=== PATIENT | female | born 1995 | race Caucasian/White ===

== ENCOUNTER → 2020-06-30 11:17 | Outpatient (CLI) | payer OTHER, SELFPAY ==
[2020-07-01 01:31] LABS: COVID19 Sendout Not Detected (Not Detect)
== END ==
PROVIDERS: PCP Obstetrics & Gynecology; Visit Provider Physician Assistant
DX: Z11.59 Encounter for screening for other viral diseases (principal)
CPT/HCPCS: 87635

== ENCOUNTER 2020-07-03 08:31 | Day surgery (SDC) | payer OTHER, SELFPAY ==
[2020-07-01 07:28] VITALS: BMI 19.4
[2020-07-03] VITALS (8 sets, daily range): BP systolic 102–109; BP diastolic 58–79; PULSE 58–98; RESP 12–17; TEMP 36–37; O2SAT 98–100; BMI 19.4
--- NOTE | 2020-07-03 | PATH_ITS ---
[facility] Accession Number: [id number] . 01 Material submitted: . fallopian tube - BILATERAL FALLOPIAN TUBES . 02 Diagnosis: Bilateral Fallopian Tubes, Bilateral Tubal Ligation: Complete cross-sections of segments of fallopian tube x2. Negative for atypia or malignancy. MRV 07/07/2020 1008 Local . 02 Electronically signed: . Moraima Feliz MD, Pathologist NPI- [id number] . 01 Gross description: . Received in formalin, labeled bilateral fallopian tubes, and consists of two fallopian tubes measuring 5.0 cm in length x 0.6 cm in diameter and 6.5 cm in length x 0.6 cm in diameter. The serosa is pink-purple and smooth, and the longer fallopian tube has a 1.2 x 0.7 x 0.6 cm translucent paratubal cyst. Sectioning reveals a potts mucosa and a stellate lumen measuring up to 0.4 cm in diameter. [employer] Cell Assembly Supervisor sections are submitted. . A1: shorter fallopian tube with margin (en face, blue), central cross-sections and bisected fimbria. A2: longer fallopian tube with margin (en face, blue), central cross-sections and bisected fimbria with attached paratubal cyst. ([id number]) /MRV 07/04/2020 1257 Local . 02 Pathologist provided ICD-10: Z30.2 . 02 CPT . 274507 Performed at: 01 [facility] [address] [id number] MD Art Galvan MD Phone: [phone] Performed at: 02 [facility] [address] [place], [place] [id number] MD Lashanda Morocho MD Phone: [phone]
[2020-07-03] MEDS: LACTATED RINGERS 1,000 ML 42 ML IV (09:15)
--- NOTE | 2020-07-03 09:34 | PM.PREOP ---
Pre-operative Note COVID-19 COVID-19 status: Negative Result date/Date tested (Pos, Neg/Pending): 06/30/20 Interval Note History & Physical reviewed/Exam performed by Physician: Yes Changes to H&P: No H&P completed within 30 days and has changed as indicated here:: 07/03/20
--- NOTE | 2020-07-03 09:51 | P.HP_ITS ---
History of Present Illness History of Present Illness Date Patient Seen: 07/03/20 Time Patient Seen: 09:51 Chief complaint: [facility] Narrative: Patient is a 25-year-old 3 para 3 who desires permanent sterilization. She is scheduled for a laparoscopic bilateral salpingectomy. Patient History Medical History (Updated 07/01/20 @ 07:32 by Sondra Webber RN) (spontaneous vaginal delivery) (Acute) Surgical History (Updated 07/02/20 @ 21:50 by Lizzy Scott) Anesthesia (Resolved) H/O adenoidectomy (Acute ~1996) H/O rhinoplasty (Acute ~2007) [place] teeth extracted (Acute ~2009) Family & Social History Family History (Updated 07/02/20 @ 21:52 by Lizzy Scott) Father Hypertension Hyperlipidemia Mother Fibromyalgia EDS (Ava-Danlos syndrome) Grandfather Stroke Grandfather History of heart disease Social History: household members spouse,children Tobacco & Substance use: Smoking Status Never smoker alcohol intake frequency holiday/special occasion Substance Use Type does not use Meds Home Medications and Allergies Home Medications Medication Instructions Recorded Confirmed Type No Known Home Medications 05/22/20 07/01/20 History Allergies Allergy/AdvReac Type Severity Reaction Status Date / Time ku pepper Allergy Severe Difficulty Uncoded 07/03/20 08:42 Breathing eggs Allergy Severe Difficulty Uncoded 07/03/20 08:42 Breathing red onion Allergy Severe Difficulty Uncoded 07/03/20 08:42 Breathing Exam Vital Signs (past 8 hours): - 07/03/20 08:49 Temperature 98.6 F Pulse Rate 98 H Respiratory Rate 16 Blood Pressure 109/79 Pulse Oximetry 100 Oxygen Delivery Method Room Air Narrative Exam Narrative: HEENT: No thyromegaly, no anterior cervical or supraclavicular lymphadenopathy. Lungs:Clear to auscultation bilaterally, no wheezes. Cardiovascular: Regular rate and rhythm, no murmurs, rubs, or gallops. Abdomen: No scars. No hepatosplenomegaly. No masses palpable. External genitalia: Normal Vagina: Normal Cervix: Normal Bimanual exam: 6 Week size anteverted uterus. Mobile.] Rectal: No masses. Assessment & Plan Assessment & Plan narrative: Assessment: 25-year-old 3 para 3 who desires permanent sterilization Plan: Laparoscopic bilateral salpingectomy The risks, benefits, and alternatives to the procedure were explained to the patient. The risks including bleeding, infection, injury to the bowel, bladder, or ureters. She understands these risks and agreed to proceed. A full par Q was held and consent form was signed. COVID-19 COVID-19 status: Negative Result date/Date tested (Pos, Neg/Pending): 06/30/20 Time Spent With Patient Time with patient: less than 15 minutes
--- NOTE | 2020-07-03 10:05 | SUR.OPER ---
Lithotomy on padded OR bed, head on pillow, arms secured on padded arm boards at <90 degrees abduction. Legs secured in padded yellow fins stirrups.
[2020-07-03] MEDS: BUPIVACAINE 0.5% W/ EPI (PF) 30 ML VIAL INJ (10:40)
--- NOTE | 2020-07-03 10:44 | PM.GYNOP.1 ---
Operative Date/Time/Diagnoses Date of procedure: 07/03/20 Time of procedure: 10:44 Pre-op diagnosis: Desires permanent sterilization Post-op diagnosis: same Procedure & Clinicians Procedure: Procedures Operation Date: 07/03/20 09:45 Actual Procedures Side Surgeon p Laparoscopic Salpingectomy Bilateral Bonnie Hodge MD Indications: Multiparity Desires permanent sterilization Surgeon: Bonnie Hodge Anesthesia Type: General Operative Notes Findings: Normal uterus, tubes, ovaries Normal appendix Normal liver and gallbladder Closure Type: primary Specimen(s): left tube and right tube Estimated blood loss (mL): 5 Blood products transfused: none Procedure in detail: After informed consent was obtained, the patient was taken to the operating room where she was placed in the dorsal supine position. After adequate general endotracheal anesthesia was achieved, she was placed in the dorsal lithotomy position, and prepped and draped in the usual sterile fashion. A time-out was performed. A bivalve speculum was placed into the vagina and the anterior lip of the cervix grasped with a single-tooth tenaculum. Cervical os was sequentially dilated until the Zumi uterine manipulator could pass easily into the endometrial cavity. The single-tooth tenaculum was removed from the anterior lip of the cervix. The bivalve speculum was removed from the vagina. Attention was then turned to the abdomen where 6 cc of 0.5% Marcaine with epinephrine were injected in the umbilical fold. A 5 mm incision was made. The Veress needle was placed into the peritoneal cavity, and its placement confirmed by aspiration and drop test. The abdominal cavity was insufflated with 3.5 L of CO2. The Veress needle was removed, and a 5 mm trocar was placed without difficulty. Initial inspection with the laparoscopic revealed the findings noted above. Two other incisions were made after 6 cc of 0.5% Marcaine with epinephrine were injected lateral to the midline approximately 4 cm from the umbilicus. 5 mm trocars were placed under direct visualization. The probe was used to identify the tubes and ovaries which were found to be normal. The appendix was visualized and was normal. The gallbladder and liver were normal. The right tube was grasped with an atraumatic grasper. Using the PlasmaKinetic was settings at 40 w, the mesosalpinx was cauterized and cut all the way down to the cornua of the uterus. The tube was amputated at the cornua. This was repeated on the patient's left side. Hemostasis was achieved. The tubes were removed through the 5 mm trocars. The pelvis was examined and there was no bleeding noted. The instruments were removed from the abdomen. The CO2 was allowed to escape. The trocars were removed. The incisions were repaired with 4 0 Biosyn in a subcuticular fashion. Steri-Strips, 2 x 2, and op site were placed. The Zumi uterine manipulator was removed from the uterus. Sponge, lap, and instrument counts were correct x2. The patient tolerated the procedure well, and was taken to PACU in stable condition. Complications: none Post-operative Condition: stable Disposition: PACU Plan for aftercare: Home after recovery
== END 2020-07-03 11:59 | disposition home or self-care (01) ==
PROVIDERS: PCP Obstetrics & Gynecology; Referring Provider Obstetrics & Gynecology; Visit Provider Obstetrics & Gynecology
PROC: 0UT74ZZ Resection of Bilateral Fallopian Tubes, Percutaneous Endoscopic Approach (ICD-10-PCS; CPT 58661; principal; 2020-07-03 09:45)
DX: Z30.2 Encounter for sterilization (principal); N83.8 Other noninflammatory disorders of ovary, fallopian tube and broad ligament
CPT/HCPCS: 58661; J1100; J1885; J2405; J2704; J3010

== ENCOUNTER 2023-09-16 12:07 | Emergency (ER) | payer OTHER, SELFPAY ==
[2023-09-16 12:15] VITALS: BP 137/78; PULSE 83; RESP 18; TEMP 36.4; O2SAT 100; BMI 20.5
--- NOTE | 2023-09-16 12:24 | DI.RAD.S_ITS ---
PROCEDURE: XR FOOT RT MIN 3V INDICATIONS: MTP pain, 4 d s/p trampoline injury TECHNIQUE: 3 views of the foot were acquired. COMPARISON: None. FINDINGS: Bones: No fractures or dislocations. Normal alignment on non weight-bearing view. Joint spaces are maintained. No suspicious bony lesions. Soft tissues: No tibiotalar joint effusion. Achilles tendon appears normal. IMPRESSION: No acute bony abnormality. Dictated by: Giovanna Olivo M.D. on 09/16/2023 at 12:49 Approved by: Giovanna Olivo M.D. on 09/16/2023 at 12:51
--- NOTE | 2023-09-16 12:57 | ED_ITS ---
HPI - Extremity Problem <Linda Torres PA-C - Last Filed: 09/16/23 19:44> General Chief complaint: Extremity Injury, Lower Stated complaint: Foot pain Time Seen by Provider: 09/16/23 12:19 Source: patient Mode of arrival: Ambulatory History of Present Illness HPI Narrative: 28-year-old woman presents with concern for pain at the base of her right great toe. As well as bruising. Patient states that she did a flip on the trampoline on Tuesday night 4 days ago and she thinks that she bent her toe upwards in the process. She says it was quite painful afterwards. The bruising developed in the next day. She states that she is frustrated because she has actually been having problems with this joint on and off for the past 2 years. She states she has talked to her PCP about it but has not seen a specialist. She endorses that her chronic pain is in the base of her right great toe at the joint and is almost always present if she is kneeling and bending her toe at that joint. She states that it is also sometimes painful with walking. She says that the pain comes and goes. She endorses a tingling sensation in her great toe since her injury. Since she injured her toe on the trampoline her pain has been a lot worse than her intermittent baseline pain and she says the bruising is also concerning. She denies any current or previous problems of redness swelling heat at the site of pain and denies other symptoms, or injuries. Related Data Home Medications Medication Instructions Recorded Confirmed No Known Home Medications 05/22/20 07/01/20 Previous Rx's Medication Instructions Recorded oxycodone-acetaminophen 5 mg-325 1 tab PO Q4-6H PRN pain #14 tabs 07/03/20 mg tablet (Percocet) Allergies Allergy/AdvReac Type Severity Reaction Status Date / Time ku pepper Allergy Severe Difficulty Uncoded 07/03/20 08:42 Breathing eggs Allergy Severe Difficulty Uncoded 07/03/20 08:42 Breathing red onion Allergy Severe Difficulty Uncoded 07/03/20 08:42 Breathing Review of Systems <NEGIN Solares Last Filed: 09/16/23 19:44> Review of Systems Narrative: See HPI Patient History <NEGIN Solares Last Filed: 09/16/23 19:44> Medical History (spontaneous vaginal delivery) Surgical History Anesthesia [place] teeth extracted (~2009) H/O rhinoplasty (~2007) H/O adenoidectomy (~1996) Family History Father Hypertension Hyperlipidemia Mother Fibromyalgia EDS (Ava-Danlos syndrome) Grandfather Stroke Grandfather History of heart disease Social History household members: spouse and children Smoking Status: Never smoker Smoking Status: Never smoker alcohol intake frequency: holidays/special occasions only Substance Use Type: does not use Exam <Linda Torres PA-C - Last Filed: 09/16/23 19:44> Narrative Exam Narrative: GENERAL: 28 year old patient appears stated age. Well-developed patient, in mild distress, healthy nontoxic-appearing. HEAD: Atraumatic. Normocephalic. EYES: Pupils equal round and reactive. Extraocular motions intact. No scleral icterus. No injection or drainage. ENT: Nose without bleeding, purulent drainage. Airway patent. NECK: Trachea midline. Non tender CARDIOVASCULAR: Regular rate and rhythm RESPIRATORY: No increased work of breathing or respiratory distress EXTREMITIES: Over the affected right MTP there is purplish bruising over the MTP joint without appreciable swelling. Range of motion at the great toe and ankle are intact. There is increased pain with attempted flexion and extension of the great toe. There is tenderness with palpation of the dorsum of MTP/extensor tendon and the dorsum of the proximal great toe without erythema, heat, swelling noted No other edema or joint tenderness noted. Pedal pulses are strong and equal bilaterally 2+ no other bony tenderness noted NEURO: AOx3. SKIN: No rash or erythema of visible areas Initial Vital Signs Initial Vital Signs: Vital Signs Temperature 97.5 F L 09/16/23 12:15 Pulse Rate 83 09/16/23 12:15 Respiratory Rate 18 09/16/23 12:15 Blood Pressure 137/78 09/16/23 12:15 Pulse Oximetry 100 09/16/23 12:15 Oxygen Delivery Method Room Air 09/16/23 12:15 <Rebekah Kiran MD - Last Filed: 09/18/23 02:36> Initial Vital Signs Initial Vital Signs: Vital Signs Temperature 97.5 F L 09/16/23 12:15 Pulse Rate 83 09/16/23 12:15 Respiratory Rate 18 09/16/23 12:15 Blood Pressure 137/78 09/16/23 12:15 Pulse Oximetry 100 09/16/23 12:15 Oxygen Delivery Method Room Air 09/16/23 12:15 Course <Linda Torres PA-C - Last Filed: 09/16/23 19:44> Orders Ordered: ED Orders 09/16/23 12:24 XR foot RT min 3V Stat Vital Signs Vital signs: Vital Signs - 8 hr 09/16/23 12:15 09/16/23 13:26 Temperature 97.5 F L Pulse Rate 83 77 Respiratory Rate 18 20 Blood Pressure 137/78 117/72 Pulse Oximetry 100 100 Oxygen Delivery Method Room Air Room Air <Rebekah Kiran MD - Last Filed: 09/18/23 02:36> Orders Ordered: ED Orders 09/16/23 12:24 XR foot RT min 3V Stat Vital Signs Vital signs: Vital Signs - 8 hr 09/16/23 12:15 09/16/23 13:26 Temperature 97.5 F L Pulse Rate 83 77 Respiratory Rate 18 20 Blood Pressure 137/78 117/72 Pulse Oximetry 100 100 Oxygen Delivery Method Room Air Room Air MDM - Extremity (Nontraumatic) <Linda Torres PA-C - Last Filed: 09/16/23 19:44> Differential Diagnosis Differential diagnosis: Likely gout and other (Sprain, strain) Medical Records Attestation: I reviewed the patient's medical records. Lab Data Attestation: I reviewed the patient's lab results. Imaging Data Extremity x-ray #1: My Impression: Agree with Radiology interpretation Radiologist's Impression: [address] [address] XRay Report Signed Patient: Sapphire Cabezas MR#: [id number] : 1995 Acct:[id number] Age/Sex: 28 / F Date of Service: 09/16/23 Loc: ED Accession Number: [id number] Procedure: XR foot RT min 3V Ordering Provider: Linda Torres P.A-C PROCEDURE: XR FOOT RT MIN 3V INDICATIONS: MTP pain, 4 d s/p trampoline injury TECHNIQUE: 3 views of the foot were acquired. COMPARISON: None. FINDINGS: Bones: No fractures or dislocations. Normal alignment on non weight-bearing view. Joint spaces are maintained. No suspicious bony lesions. Soft tissues: No tibiotalar joint effusion. Achilles tendon appears normal. IMPRESSION: No acute bony abnormality. Dictated by: Giovanna Olivo M.D. on 09/16/2023 at 12:49 Approved by: Giovanna Olivo M.D. on 09/16/2023 at 12:51 [facility] Narrative Medical decision making narrative: this is a generally healthy well-appearing 28-year-old female who presents with concern for right great toe pain at the MTP after an injury sustained on the trampoline 4 days ago this week. Pt also endorses chronic pain at this joint intermittently for the past 2 years. She is attempted to see her PCP but states she has not been able to get in to be seen when the pain is happening. Patient's exam today is most consistent with a mild strain/sprain. X-rays are obtained. These returned negative for fracture. Discussed patient's chronic symptoms with her and encouraged her to talk to her primary care provider about this and possibly see podiatry or orthopedics for further evaluation given her persistent and chronic pain. Her history does not strongly suggest gout in her exam today certainly does not suggest gout. I am also less concerned for a chronic infection. Etiology of her chronic pain is unclear, she is quite young and it seems unlikely that it would be due to an arthritis this is also not seen on imaging. She is encouraged to try using an Merrill wrap and stay off of her foot while it is more painful, take Tylenol and ibuprofen for pain. After discussion with the patient she declines an Merrill wrap today and does not feel she needs crutches as she has been doing okay walking. Return precautions provided, follow-up plan discussed, all questions answered. Discharge Plan Departure Patient Disposition: Home Clinical Impression: Sprain of toe, great, right Qualifiers: Encounter type: initial encounter Qualified Code(s): S93.501A - Unspecified sprain of right great toe, initial encounter Activity Restrictions/Additional Instructions: *You have been diagnosed with [sprain of your great toe] *What to do: *Please continue to take your regular medications as directed. [ ] New medication prescriptions sent to your pharmacy: [ ] [ ] New medication written as a paper prescription [X ] No new medications given *Please follow up with your primary care provider in 2-3 days, call for an appointment. Let them know you were seen in the Emergency Department and that we ask that you be seen in follow up. We will electronically transmit a record of today's note if your PCP is in our system. Based on your exam today I believe you have a sprain of your extensor tendon of her great toe on her right foot. You endorse that you been having problems with this for some time and pain in this joint for a long time. We did get x-rays today and they were negative for any bony abnormality or any obvious swelling inside the foot. There are a lot of potential things that could cause chronic pain at this location, based on what you told me it seems less likely that this would be something such as gout. Although this is 1 possibility. I am including information on a name of an orthopedic provider and a tariff publishing agent which is a wound/ostomy clinical nurse specialist and it would be good if you could follow-up with them given you had chronic pain at this site. If your symptoms do not improve over the next 5-7 days with rest ice compression and elevation treatment please make sure you get rechecked. *If you do not have a primary care provider please contact the [facility] Resource line at [phone]. They will ask some questions about your medical history and help get you set up with a doctor in the community. *Return to Emergency Department if you should have any new, worsening or concerning symptoms, such as [fever greater than 101 F, shaking chills, worsening pain, persistent vomiting or other bothersome symptoms] Prescriptions: No Action No Known Home Medications oxycodone-acetaminophen [Percocet] 5-325 mg tablet 1 tab PO Q4-6H PRN (Reason: pain) Qty: 14 0RF Referrals: Amada Ford DPM [Physician] - Ewa Sheth MD [Physician] - Bonnie Hodge MD [Primary Care Provider] - Stand Alone Forms: Patient Portal/API ED Sign-out <Rebekah Kiran MD - Last Filed: 09/18/23 02:36> Cosign ED Attending Cosignature Attestation: I was immediately available in the department for consultation throughout this patient's visit. Rebekah Kiran MD
[2023-09-16 13:26] VITALS: BP 117/72; PULSE 77; RESP 20; O2SAT 100
== END 2023-09-16 13:27 | disposition home or self-care (01) ==
PROVIDERS: Emergency Provider Student in an Organized Health Care Education/Training Program; PCP Obstetrics & Gynecology
DX: S93.501A Unspecified sprain of right great toe, initial encounter (principal); Y93.39 Activity, other involving climbing, rappelling and jumping off
CPT/HCPCS: 73630; 99283

== ENCOUNTER → 2023-10-29 09:31 | Outpatient (CLI) | payer OTHER, SELFPAY ==
--- NOTE | 2023-10-29 | DI.MRI.S_ITS ---
PROCEDURE: MR FOOT RT WO CON INDICATIONS: PAIN AND SPRAIN IN RT TOE TECHNIQUE: Multiphasic, multisequence MRI of the forefoot was performed, without intravenous contrast administration. COMPARISON: [facility], CR, XR FOOT RT MIN 3V, 09/16/2023, 12:28. FINDINGS: Image quality: Excellent. Bones and joints: No bone marrow contusions or metatarsal stress fractures. The sesamoid bones appear in expected positions, without internal edema. No metatarsophalangeal joint degeneration. No intraosseous lesions. Soft tissues: The visualized plantar foot muscles demonstrate normal signal and bulk. Visualized flexor and extensor tendons appear intact, without tenosynovitis. The distal insertions of the peroneus brevis and longus tendons appear intact. The principal Lisfranc ligament appears intact. Sagittal images demonstrate no evidence for plantar plate tears. Mild subcutaneous edema is seen at the plantar aspect of the forefoot plantar to the 2nd through 4th metatarsophalangeal joints. No interdigital mass. IMPRESSION: 1. Mild focal subcutaneous edema plantar to the 2nd through 4th metatarsophalangeal joints, which may represent a mild soft tissue contusion versus trace adventitial bursitis or edema related to chronic repetitive pressure. 2. No acute trabecular bone injury. No significant ligament or tendon injury is seen. Approved by: Brennan Hall M.D. on 10/31/2023 at 11:07
== END ==
LOC: MRI 09:32
PROVIDERS: Referring Provider Podiatrist; Visit Provider Podiatrist
DX: S93.501A Unspecified sprain of right great toe, initial encounter (principal); R26.2 Difficulty in walking, not elsewhere classified; M79.674 Pain in right toe(s)
CPT/HCPCS: 73718

== ENCOUNTER 2024-12-01 10:45 | Emergency (ER) | payer OTHER, SELFPAY ==
[2024-12-01 10:56] VITALS: BP 125/78; PULSE 113; RESP 14; TEMP 36.9; O2SAT 97; BMI 20.5
--- NOTE | 2024-12-01 11:07 | ED_ITS ---
HPI - Skin/Abscess/Foreign Bdy <Sapphire Renee PA-C - Last Filed: 12/01/24 15:41> General Chief complaint: Skin/Abscess/Foreign Body Stated complaint: sick/dizzy/skin rash Time Seen by Provider: 12/01/24 11:05 Source: patient Mode of arrival: Ambulatory Limitations: no limitations History of Present Illness HPI narrative: 29-year-old female with no significant past medical history presents to the ED with several days of exhaustion, dizziness, feeling weak. States she woke up this morning feeling like her entire body has a sunburn. Her skin is flushed and feels warm to the touch. Especially her Face, arms and legs. there is no visible rash, the skin is just red. She denies fever today. On Tuesday ( 5 days ago) she had a fever all day but has been afebrile since then. States that when resting she starts to feel better, but as soon as she stands up and moves around she begins feeling exhausted, dizzy and weak. Feels her heart is racing and she feels short of breath. States she was so weak the other day that she had to crawl across her kitchen. she denies cough, other URI symptoms. She denies headache and vision changes. States the dizziness is a generalized woozy feeling and not room spinning. She has a history of bilateral salpingectomy and her has been deployed for several months so she denies any possibility of at this time. She is also currently on her menstrual cycle, Which has been monthly and regular. she does not take any medications. She does not take any vitamins, supplements, energy drinks, other natural products. no recent travel, No new medications or vaccinations recently. She has no sick contacts at home. Related Data Home Medications Medication Instructions Recorded Confirmed No Known Home Medications 05/22/20 07/01/20 Previous Rx's Medication Instructions Recorded oxycodone-acetaminophen 5 mg-325 1 tab PO Q4-6H PRN pain #14 tabs 07/03/20 mg tablet (Percocet) Allergies Allergy/AdvReac Type Severity Reaction Status Date / Time ku pepper Allergy Severe Difficulty Uncoded 07/03/20 08:42 Breathing eggs Allergy Severe Difficulty Uncoded 07/03/20 08:42 Breathing red onion Allergy Severe Difficulty Uncoded 10/15/20 08:42 Breathing Review of Systems <Sapphire Renee PA-C - Last Filed: 12/01/24 15:41> Review of Systems ROS Unobtainable: All systems reviewed & are unremarkable except as noted in HPI and below Patient History <Sapphire Renee PA-C - Last Filed: 12/01/24 15:41> Medical History (spontaneous vaginal delivery) Surgical History Anesthesia [place] teeth extracted (~2009) H/O rhinoplasty (~2007) H/O adenoidectomy (~1996) Family History Father Hypertension Hyperlipidemia Mother Fibromyalgia EDS (Ava-Danlos syndrome) Grandfather Stroke Grandfather History of heart disease Social History household members: spouse and children Smoking Status: Never smoker Smoking Status: Never smoker alcohol intake frequency: holidays/special occasions only Exam <Sapphire Renee PA-C - Last Filed: 12/01/24 15:41> Narrative Exam Narrative: GENERAL: [ 29] year old patient appears stated age. Well-developed patient, in no acute distress. appears unwell and fatigued. HEAD: Atraumatic. Normocephalic. EYES: Pupils equal round and reactive. Extraocular motions intact. No scleral icterus. No injection or drainage. ENT: Nose without bleeding, purulent drainage. scattered petechiae posterior oropharynx. Throat without erythema, tonsillar hypertrophy or exudate. Airway patent. NECK: Trachea midline. Non tender. no palpable lymphadenopathy CARDIOVASCULAR: mild tachycardia, regular rhythm without murmurs, gallops, or rubs. RESPIRATORY: Clear to auscultation. Breath sounds equal bilaterally. No wheezes, rales, or rhonchi. GASTROINTESTINAL: Abdomen soft, non-tender, nondistended. EXTREMITIES: No edema or joint tenderness. BACK: Nontender without deformity or crepitus. No flank tenderness. NEURO: AOx3. SKIN: Skin is flushed and warm to the touch all over. No petechiae, purpura, or other lesions or abnormalities noted. Normal Signs of perfusion /cap refill. Initial Vital Signs Initial Vital Signs: Vital Signs Temperature 98.5 F 12/01/24 10:56 Pulse Rate 113 H 12/01/24 10:56 Respiratory Rate 14 12/01/24 10:56 Blood Pressure 125/78 12/01/24 10:56 Pulse Oximetry 97 12/01/24 10:56 Oxygen Delivery Method Room Air 12/01/24 10:56 <Rebekah Kiran MD - Last Filed: 12/02/24 08:06> Initial Vital Signs Initial Vital Signs: Vital Signs Temperature 98.5 F 12/01/24 10:56 Pulse Rate 113 H 12/01/24 10:56 Respiratory Rate 14 12/01/24 10:56 Blood Pressure 125/78 12/01/24 10:56 Pulse Oximetry 97 12/01/24 10:56 Oxygen Delivery Method Room Air 12/01/24 10:56 Course <Sapphire Renee PA-C - Last Filed: 12/01/24 15:41> Orders Ordered: ED Orders 12/01/24 11:25 EKG-12 Lead Stat 12/01/24 11:38 CBC Auto Diff [Complete Blood Count AUTO DIFF] Stat CMP [Comprehensive Metabolic Panel] Stat CRP [C-Reactive Protein Quant] Stat 12/01/24 11:57 Covid-19 + FLU A/B + RSV - PCR Stat 12/01/24 12:58 UA Complete [Urinalysis and Microscopic] Stat Vital Signs Vital signs: Vital Signs - 8 hr 12/01/24 10:56 12/01/24 11:34 12/01/24 11:36 Temperature 98.5 F Pulse Rate 113 H 120 H Pulse Rate [Orthostatic Lying] 99 H Pulse Rate [Orthostatic Sitting] 112 H Pulse Rate [Orthostatic Standing] 126 H Respiratory Rate 14 Blood Pressure 125/78 Blood Pressure [Orthostatic Lying] 140/82 Blood Pressure [Orthostatic Sitting] 127/86 Blood Pressure [Orthostatic Standing] 140/95 H Pulse Oximetry 97 100 Oxygen Delivery Method Room Air 12/01/24 12:00 12/01/24 12:00 12/01/24 12:30 Temperature Pulse Rate 92 H Pulse Rate [Orthostatic Lying] Pulse Rate [Orthostatic Sitting] Pulse Rate [Orthostatic Standing] Respiratory Rate Blood Pressure 137/82 117/80 Blood Pressure [Orthostatic Lying] Blood Pressure [Orthostatic Sitting] Blood Pressure [Orthostatic Standing] Pulse Oximetry 100 Oxygen Delivery Method 12/01/24 12:30 12/01/24 13:49 Temperature 98.6 F Pulse Rate 93 H Pulse Rate [Orthostatic Lying] Pulse Rate [Orthostatic Sitting] Pulse Rate [Orthostatic Standing] Respiratory Rate Blood Pressure Blood Pressure [Orthostatic Lying] Blood Pressure [Orthostatic Sitting] Blood Pressure [Orthostatic Standing] Pulse Oximetry 100 Oxygen Delivery Method <Rebekah Kiran MD - Last Filed: 12/02/24 08:06> Orders Ordered: ED Orders 12/01/24 11:25 EKG-12 Lead Stat 12/01/24 11:38 CBC Auto Diff [Complete Blood Count AUTO DIFF] Stat CMP [Comprehensive Metabolic Panel] Stat CRP [C-Reactive Protein Quant] Stat 12/01/24 11:57 Covid-19 + FLU A/B + RSV - PCR Stat 12/01/24 12:58 UA Complete [Urinalysis and Microscopic] Stat Vital Signs Vital signs: Vital Signs - 8 hr 12/01/24 10:56 12/01/24 11:34 12/01/24 11:36 Temperature 98.5 F Pulse Rate 113 H 120 H Pulse Rate [Orthostatic Lying] 99 H Pulse Rate [Orthostatic Sitting] 112 H Pulse Rate [Orthostatic Standing] 126 H Respiratory Rate 14 Blood Pressure 125/78 Blood Pressure [Orthostatic Lying] 140/82 Blood Pressure [Orthostatic Sitting] 127/86 Blood Pressure [Orthostatic Standing] 140/95 H Pulse Oximetry 97 100 Oxygen Delivery Method Room Air 12/01/24 12:00 12/01/24 12:00 12/01/24 12:30 Temperature Pulse Rate 92 H Pulse Rate [Orthostatic Lying] Pulse Rate [Orthostatic Sitting] Pulse Rate [Orthostatic Standing] Respiratory Rate Blood Pressure 137/82 117/80 Blood Pressure [Orthostatic Lying] Blood Pressure [Orthostatic Sitting] Blood Pressure [Orthostatic Standing] Pulse Oximetry 100 Oxygen Delivery Method 12/01/24 12:30 12/01/24 13:49 Temperature 98.6 F Pulse Rate 93 H Pulse Rate [Orthostatic Lying] Pulse Rate [Orthostatic Sitting] Pulse Rate [Orthostatic Standing] Respiratory Rate Blood Pressure Blood Pressure [Orthostatic Lying] Blood Pressure [Orthostatic Sitting] Blood Pressure [Orthostatic Standing] Pulse Oximetry 100 Oxygen Delivery Method MDM - Skin/Abscess/Foreign Bdy <Sapphire Renee PA-C - Last Filed: 12/01/24 15:41> Lab Data 12/01/24 11:38 12/01/24 11:38 Labs: Lab Results 12/01/24 12/01/24 12/01/24 Range/Units 11:38 11:57 12:58 WBC 3.7 L (4.5-11.0) X10^3/uL RBC 4.25 (4.0-5.2) X10^6/uL Hgb 12.7 (12.0-16.0) g/dL Hct 36.7 (36-46) % MCV 86.3 (80-100) fL MCH 29.9 (26-34) PG MCHC 34.6 (30-36) % RDW 12.3 (11.6-14.8) % Plt Count 92 L (150-400) X10^3/uL Neut % (Auto) 49.1 L (50-75) % Lymph % (Auto) 32.4 (25-40) % [place]le[place] % (Auto) 9.9 (3-14) % Eos % (Auto) 7.6 H (2-4) % Baso % (Auto) 1.0 (0-2) % Neut # (Auto) 1800 (0482-1741) /uL Lymph # (Auto) 1200 (1498-9024) /uL Schleicher # (Auto) 400 (0-900) /uL Eos # (Auto) 300 (0-450) /uL Baso # (Auto) 0 (0-100) /uL Sodium 138 (137-145) mmol/L Potassium 3.7 (3.4-5.1) mmol/L Chloride 103 (98-107) mmol/L Carbon Dioxide 27 (22-32) mmol/L BUN 10 (7-17) mg/dL Creatinine 0.74 (0.52-1.04) mg/dL Estimated GFR > 60 (>60) mL/min BUN/Creatinine Ratio 13.5 (6-22) Glucose 93 (70-100) mg/dL Calcium 9.1 (8.4-10.2) mg/dL Total Bilirubin 0.5 (0.2-1.3) mg/dL AST 29 (14-36) IU/L ALT 20 (<35) IU/L Alkaline Phosphatase 42 (38-126) U/L C-Reactive Protein < 0.5 (<1.0) mg/dL Total Protein 7.0 (6.3-8.2) g/dL Albumin 4.1 (3.5-5.0) g/dL Globulin 2.9 (1.7-4.1) g/dL Albumin/Globulin Ratio 1.4 (1.0-2.8) Urine Color Yellow Urine Appearance Clear Urine pH 6.0 (4.5-8.0) Ur Specific [place] <=1.005 (1.000-1.035) Urine Protein Negative (Negative) Urine Glucose (UA) Negative (Negative) g/dL Urine Ketones Negative (NEGATIVE) Urine Occult Blood 3+ H (Negative) Urine Nitrate Negative (Negative) Urine Bilirubin Negative (NEGATIVE) Urine Urobilinogen 0.2 (0.2) E.U./dL Ur Leukocyte Esterase Negative (NEGATIVE) Urine RBC 1-5/hpf (0-5/HPF) Urine WBC None seen (0-5/HPF) Ur Squamous Epith Cells None seen (0-5/HPF) Urine Bacteria Few (2-10) H (None) Ur Culture Indicated? Cult not indicated Vol Urine Centrifuged 10ml (spun) SARS-CoV-2 (PCR) Negative (Negative) Influenza A (RT-PCR) Flu a negative (NEGATIVE) Influenza B (RT-PCR) Flu b negative (NEGATIVE) RSV (PCR) Negative (Negative) ECG Data Interpretation: 1130 EKG is normal sinus rhythm rate [95 ] and free of any signs of ischemia or ectopy. No ST segmental elevation or depression. No T wave inversions MDM Narrative Medical decision making narrative: Differential diagnosis includes viral infection, influenza, COVID, anemia, malignancy Patient presented with 5 days fatigue, weakness, dizziness. Today she woke up feeling like her entire sunburn and noted her skin was flushed and warm to the touch especially on her arms and legs. She denies any sore throat headache cough other URI symptoms. She had a fever on the 1st day but afebrile since. She is not on medications or supplements of any kind. She was tachycardic in triage but otherwise normal vital signs. Orthostatics were positive with increased heart rate and blood pressure upon standing. Exam unremarkable other than flushed skin that is warm to the touch and some few scattered petechiae on the upper palate. Otherwise no petechiae, purpura or other skin findings. She appears well hydrated. CBC, CMP, CRP, viral panel, and urine are ordered. All unremarkable except for CBC which indicates thrombocytopenia and neutropenia/leukopenia. RBCs and hemoglobin normal. This could be due to some viral related suppression. Less likely a malignancy, due to normal RBCs and hemoglobin although not completely excluded. No possibility -history of bilateral salpingectomy and her has been deployed. Discussed case with Dr. Kiran who agreed no further testing needed at this time and patient should follow up with her PCP in 1-2 weeks for a repeat CBC. If patient is worsening in the meantime and has any new/worsening symptoms she was instructed to return to the ED for further workup. <Rebekah Kiran MD - Last Filed: 12/02/24 08:06> Lab Data Labs: Lab Results 12/01/24 12/01/24 12/01/24 Range/Units 11:38 11:57 12:58 WBC 3.7 L (4.5-11.0) X10^3/uL RBC 4.25 (4.0-5.2) X10^6/uL Hgb 12.7 (12.0-16.0) g/dL Hct 36.7 (36-46) % MCV 86.3 (80-100) fL MCH 29.9 (26-34) PG MCHC 34.6 (30-36) % RDW 12.3 (11.6-14.8) % Plt Count 92 L (150-400) X10^3/uL Neut % (Auto) 49.1 L (50-75) % Lymph % (Auto) 32.4 (25-40) % Schleicher % (Auto) 9.9 (3-14) % Eos % (Auto) 7.6 H (2-4) % Baso % (Auto) 1.0 (0-2) % Neut # (Auto) 1800 (5763-6071) /uL Lymph # (Auto) 1200 (6603-8201) /uL [place]leicher # (Auto) 400 (0-900) /uL Eos # (Auto) 300 (0-450) /uL Baso # (Auto) 0 (0-100) /uL Sodium 138 (137-145) mmol/L Potassium 3.7 (3.4-5.1) mmol/L Chloride 103 (98-107) mmol/L Carbon Dioxide 27 (22-32) mmol/L BUN 10 (7-17) mg/dL Creatinine 0.74 (0.52-1.04) mg/dL Estimated GFR > 60 (>60) mL/min BUN/Creatinine Ratio 13.5 (6-22) Glucose 93 (70-100) mg/dL Calcium 9.1 (8.4-10.2) mg/dL Total Bilirubin 0.5 (0.2-1.3) mg/dL AST 29 (14-36) IU/L ALT 20 (<35) IU/L Alkaline Phosphatase 42 (38-126) U/L C-Reactive Protein < 0.5 (<1.0) mg/dL Total Protein 7.0 (6.3-8.2) g/dL Albumin 4.1 (3.5-5.0) g/dL Globulin 2.9 (1.7-4.1) g/dL Albumin/Globulin Ratio 1.4 (1.0-2.8) Urine Color Yellow Urine Appearance Clear Urine pH 6.0 (4.5-8.0) Ur Specific [place] <=1.005 (1.000-1.035) Urine Protein Negative (Negative) Urine Glucose (UA) Negative (Negative) g/dL Urine Ketones Negative (NEGATIVE) Urine Occult Blood 3+ H (Negative) Urine Nitrate Negative (Negative) Urine Bilirubin Negative (NEGATIVE) Urine Urobilinogen 0.2 (0.2) E.U./dL Ur Leukocyte Esterase Negative (NEGATIVE) Urine RBC 1-5/hpf (0-5/HPF) Urine WBC None seen (0-5/HPF) Ur Squamous Epith Cells None seen (0-5/HPF) Urine Bacteria Few (2-10) H (None) Ur Culture Indicated? Cult not indicated Vol Urine Centrifuged 10ml (spun) SARS-CoV-2 (PCR) Negative (Negative) Influenza A (RT-PCR) Flu a negative (NEGATIVE) Influenza B (RT-PCR) Flu b negative (NEGATIVE) RSV (PCR) Negative (Negative) Discharge Plan Departure Patient Disposition: Home Clinical Impression: Thrombocytopenia Leukocytopenia, unspecified Qualifiers: Leukopenia type: unspecified Qualified Code(s): D72.819 - Decreased white blood cell count, unspecified Instructions: DI for Viral Syndrome Activity Restrictions/Additional Instructions: Thank you for trusting us with your care today. Your blood work indicated low platelets and a low white blood cell count. Otherwise your blood work was normal. These lab findings can be related to a viral infection, and your other symptoms of fatigue and dizziness can be related to this as well. We recommend continuing to rest and push fluids. If this is a virus your symptoms will slowly improve on their own. If your symptoms are worsening or if you develop any signs of spontaneous bleeding such as nosebleeds or gum bleeding please return to the emergency department for further workup. Otherwise we recommend following up with your primary care provider in 1-2 weeks to repeat your blood tests (CBC). Prescriptions: No Action No Known Home Medications oxycodone-acetaminophen [Percocet] 5-325 mg tablet 1 tab PO Q4-6H PRN (Reason: pain) Qty: 14 0RF Referrals: ProviderClarence [Primary Care Provider] - Stand Alone Forms: Patient Portal/API/Survey ED Sign-out <Rebekah Kiran MD - Last Filed: 12/02/24 08:06> Cosign ED Attending Cosestelitaature Attestation: I reviewed this patient's care in real-time and discussed further workup and concerns with Ms. Charu Kiran MD
--- NOTE | 2024-12-01 11:31 | EKG_ITS ---
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
[2024-12-01 11:34] VITALS: PULSE 120; O2SAT 100
[2024-12-01 11:36] VITALS: BP 127/86; BP 140/82; BP 140/95; PULSE 112; PULSE 126; PULSE 99
[2024-12-01 11:46] LABS: Add Manual Diff / Slide Review NO; Basophils Absolute Auto 0 /uL (0-100); Eosinophils Absolute Auto 300 /uL (0-450); Eosinophils Percent Auto 7.6 % (2-4); Hematocrit 36.7 % (36-46); Hemoglobin 12.7 g/dL (12.0-16.0); Lymphocytes Absolute Auto 1200 /uL (1100-4500); Lymphocytes Percent Auto 32.4 % (25-40); Mean Corpuscular HGB Conc 34.6 % (30-36); Mean Corpuscular Hemoglobin 29.9 PG (26-34); Mean Corpuscular Volume 86.3 fL (80-100); Monocytes Absolute Auto 400 /uL (0-900); Monocytes Percent Auto 9.9 % (3-14); Neutrophils Absolute Auto 1800 /uL (1500-7000); Neutrophils Percent Auto 49.1 % (50-75); Platelet Count 92 X10^3/uL (150-400); Red Blood Cell Count 4.25 X10^6/uL (4.0-5.2); Red Cell Distribution Width 12.3 % (11.6-14.8); White Blood Cell Count 3.7 X10^3/uL (4.5-11.0)
[2024-12-01 12:00] VITALS: BP 137/82; PULSE 92; O2SAT 100
[2024-12-01 12:02] LABS: Alanine Aminotransferase 20 IU/L (<35); Albumin 4.1 g/dL (3.5-5.0); Albumin Globulin Ratio 1.4 (1.0-2.8); Alkaline Phosphatase 42 U/L (38-126); Aspartate Aminotransferase 29 IU/L (14-36); BUN Creatinine Ratio 13.5 (6-22); Bilirubin Total 0.5 mg/dL (0.2-1.3); Blood Urea Nitrogen 10 mg/dL (7-17); C-Reactive Protein Quant < 0.5 mg/dL (<1.0); Calcium 9.1 mg/dL (8.4-10.2); Carbon Dioxide 27 mmol/L (22-32); Chloride 103 mmol/L (98-107); Estimated Glomerular Filt Rate > 60 mL/min (>60); Globulin 2.9 g/dL (1.7-4.1); Glucose 93 mg/dL (70-100); HEMOLYSIS < 15 (0-50); Potassium 3.7 mmol/L (3.4-5.1); Sodium 138 mmol/L (137-145)
[2024-12-01 12:30] VITALS: BP 117/80; PULSE 93; O2SAT 100
[2024-12-01 12:59] LABS: Influenza A - CEPHEID Flu A NEGATIVE (NEGATIVE); Influenza B - CEPHEID Flu B NEGATIVE (NEGATIVE); Respiratory Syncytial Virus Negative (Negative)
[2024-12-01 13:00] LABS: COVID-19 CEPHEID 4-PLEX PCR Negative (Negative)
[2024-12-01 13:18] LABS: Appearance Urine UA CLEAR; Bilirubin Urine UA NEGATIVE (NEGATIVE); Color Urine UA YELLOW; Glucose Urine UA NEGATIVE (Negative); Ketones Urine UA NEGATIVE (NEGATIVE); Leukocyte Esterase Urine UA NEGATIVE (NEGATIVE); Nitrite Urine UA NEGATIVE (Negative); Occult Blood Urine UA 3+ (Negative); Protein Urine UA NEGATIVE (Negative); Specific Gravity Urine UA <=1.005 (1.000-1.035); Urobilinogen Urine UA 0.2 E.U./dL (0.2)
[2024-12-01 13:31] LABS: Bacteria Urine Few (2-10); RBC Urine 1-5/HPF (0-5/HPF); Squamous Epithelial Cell Urine None Seen (0-5/HPF); Urine Volume 10mL (spun); WBC Urine None Seen (0-5/HPF)
[2024-12-01 13:32] LABS: Culture Indicated Urine Cult Not Indicated
[2024-12-01 13:49] VITALS: TEMP 37
== END 2024-12-01 13:50 | disposition home or self-care (01) ==
PROVIDERS: Emergency Provider Physician Assistant
DX: D72.819 Decreased white blood cell count, unspecified (principal); D75.839 Thrombocytosis, unspecified; R42 Dizziness and giddiness
CPT/HCPCS: 0241U; 36415; 80053; 81001; 85025; 86140; 93005; 99282; 99284

== ENCOUNTER 2024-12-02 10:47 | Emergency (ER) | payer OTHER, SELFPAY ==
[2024-12-02] VITALS (15 sets, daily range): BP systolic 103–134; BP diastolic 69–99; PULSE 75–111; RESP 20; TEMP 37; O2SAT 98–100; BMI 20.5
--- NOTE | 2024-12-02 11:16 | ED_ITS ---
HPI - Recheck/Abnormal Lab/Rx General Chief Complaint: Recheck/Abnormal Lab/Rx Stated Complaint: Sick/weakness/body rash Time Seen by Provider: 12/02/24 11:16 Source: patient Mode of arrival: Ambulatory History of Present Illness HPI narrative: 29-year-old woman with no significant medical history, takes no prescribed medication was seen yesterday with complaints of rash and near-syncope. Labs yesterday showed a slightly low white blood cell count and low platelets but were otherwise unremarkable. Patient states that she was able to eat and drink last night slept well she comes back today not feeling quite as dizzy or orthostatic however she complains that her legs feel like blood can not get out of the with pins and needles all over, her tongue feels like it is burning in her throat is very dry. She notes that on November 26 she had a fever but no symptoms after that. Of note she reports that her 2 sons both had scarlatina in the absence of sore throat but presence of positive rapid strep testing. Her rash today has almost completely resolved, she still feels overall weak Related Data Home Medications Medication Instructions Recorded Confirmed No Known Home Medications 05/22/20 07/01/20 Previous Rx's Medication Instructions Recorded oxycodone-acetaminophen 5 mg-325 1 tab PO Q4-6H PRN pain #14 tabs 07/03/20 mg tablet (Percocet) Allergies Allergy/AdvReac Type Severity Reaction Status Date / Time ku pepper Allergy Severe Difficulty Uncoded 07/03/20 08:42 Breathing eggs Allergy Severe Difficulty Uncoded 07/03/20 08:42 Breathing red onion Allergy Severe Difficulty Uncoded 07/03/20 08:42 Breathing Review of Systems Review of Systems Narrative: Pertinent positive and negative findings as per HPI Patient History Medical History (spontaneous vaginal delivery) Surgical History Anesthesia [place] teeth extracted (~2009) H/O rhinoplasty (~2007) H/O adenoidectomy (~1996) Family History Father Hypertension Hyperlipidemia Mother Fibromyalgia EDS (Ava-Danlos syndrome) Grandfather Stroke Grandfather History of heart disease Social History household members: spouse and children Smoking Status: Never smoker Smoking Status: Never smoker alcohol intake frequency: holidays/special occasions only Exam Initial Vital Signs Initial Vital Signs: Vital Signs Pulse Rate 111 H 12/02/24 10:51 Blood Pressure 131/85 12/02/24 10:51 Pulse Oximetry 100 12/02/24 10:51 General: Healthy appearing, in no acute distress. Able to give a complete and coherent history. Well-nourished well-developed HEENT: Moist mucous membranes, normal sclera with reactive pupils, tongue appears entirely appropriate. Minor erythema to the posterior pharynx without exudate. Neck: No cervical adenopathy Respiratory: Lungs are clear to auscultation, no wheezing no rales no rhonchi. Full and symmetrical air movement Cardiac: With careful auscultation cardiac sounds are unremarkable, no murmurs, clicks, displaced PMI, rubs Abdomen: Soft, nontender, no rebound or guarding, no flank pain Skin: Warm and dry, the rash that she had noticed yesterday has completely resolved Neurologic: Grossly neurologically intact with no obvious asymmetries or abnormalities Extremities: No trauma, no swelling, no edema Psych: Cooperative, appropriate insight and affect Course Orders Ordered: ED Orders 12/02/24 11:36 XR chest 1V Stat 12/02/24 12:10 Complete Blood Count AUTO DIFF Stat Comprehensive Metabolic Panel Stat Strep Grp A by PCR Rapid Stat Troponin & CK Cardiac Panel Stat Discontinued Medications Sodium Chloride (Normal Saline 0.9%) 1,000 mls @ 1,000 mls/hr IV BOLUS ONE Stop: 12/02/24 12:35 Last Admin: 12/02/24 12:14 Dose: 1,000 mls/hr Documented By: AI Vital Signs Vital signs: Vital Signs - 8 hr 12/02/24 10:51 12/02/24 10:51 12/02/24 10:52 Temperature Pulse Rate 111 H 102 H Respiratory Rate Blood Pressure 131/85 Pulse Oximetry 100 100 Oxygen Delivery Method 12/02/24 10:52 12/02/24 10:56 12/02/24 11:00 Temperature 98.6 F Pulse Rate 111 H Respiratory Rate 20 Blood Pressure 130/99 H 131/85 115/83 Pulse Oximetry 100 Oxygen Delivery Method Room Air 12/02/24 11:00 12/02/24 11:15 12/02/24 11:30 Temperature Pulse Rate 91 H 89 88 Respiratory Rate Blood Pressure 122/70 116/76 Pulse Oximetry 100 100 100 Oxygen Delivery Method 12/02/24 11:45 12/02/24 12:00 12/02/24 12:13 Temperature Pulse Rate 96 H 86 89 Respiratory Rate Blood Pressure 122/73 103/72 134/94 H Pulse Oximetry 100 98 100 Oxygen Delivery Method 12/02/24 12:15 Temperature Pulse Rate 88 Respiratory Rate Blood Pressure 123/89 Pulse Oximetry 100 Oxygen Delivery Method MDM - Recheck/Abnormal Lab/Rx Lab Data 12/02/24 12:10 12/02/24 12:10 Labs: Lab Results 12/02/24 Range/Units 12:10 WBC 2.9 L (4.5-11.0) X10^3/uL RBC 4.00 (4.0-5.2) X10^6/uL Hgb 11.9 L (12.0-16.0) g/dL Hct 34.5 L (36-46) % MCV 86.3 (80-100) fL MCH 29.8 (26-34) PG MCHC 34.5 (30-36) % RDW 12.2 (11.6-14.8) % Plt Count 107 L (150-400) X10^3/uL Neut % (Auto) 48.3 L (50-75) % Lymph % (Auto) 33.3 (25-40) % [place] % (Auto) 9.4 (3-14) % Eos % (Auto) 7.9 H (2-4) % Baso % (Auto) 1.1 (0-2) % Neut # (Auto) 1400 L (1940-8792) /uL Lymph # (Auto) 1000 L (1757-8796) /uL [place] # (Auto) 300 (0-900) /uL Eos # (Auto) 200 (0-450) /uL Baso # (Auto) 0 (0-100) /uL Sodium 137 (137-145) mmol/L Potassium 3.8 (3.4-5.1) mmol/L Chloride 103 (98-107) mmol/L Carbon Dioxide 28 (22-32) mmol/L BUN 9 (7-17) mg/dL Creatinine 0.71 (0.52-1.04) mg/dL Estimated GFR > 60 (>60) mL/min BUN/Creatinine Ratio 12.7 (6-22) Glucose 93 (70-100) mg/dL Calcium 8.8 (8.4-10.2) mg/dL Total Bilirubin 0.6 (0.2-1.3) mg/dL AST 34 (14-36) IU/L ALT 25 (<35) IU/L Alkaline Phosphatase 40 (38-126) U/L Total Creatine Kinase 34 (30-135) U/L Troponin I < 0.012 (0.01-0.034) ng/mL Total Protein 6.8 (6.3-8.2) g/dL Albumin 3.9 (3.5-5.0) g/dL Globulin 2.9 (1.7-4.1) g/dL Albumin/Globulin Ratio 1.3 (1.0-2.8) Group A Strep (PCR) Negative (Negative) MDM Narrative Medical decision making narrative: CC: Profuse weakness, burning tongue, pins and needles in the lower extremities Complicating co-morbidities: No medications, no significant medical history Data collected from: patient Medical records reviewed: Patient was seen yesterday. Main concern at that time was a rash with profuse malaise. Lab work was unremarkable. Scarlatina was considered however she did not have a sore throat or fever. Differential considered: Viral syndrome, neoplastic syndrome, postviral cardiomyopathy Exam documented above, pertinent findings include: Otherwise healthy appearing. Rash from yesterday has completely resolved. Tongue is normal appearing, no geographic tongue, no denuding, no increased erythema. No pharyngeal erythema no cervical adenopathy, no abnormalities on pulmonary or cardiac exam. Belly is nontender no organomegaly. No lower extremity edema Lab Test results independently reviewed as above. Pertinent findings: CBC is somewhat concerning for developing pancytopenia. White count is 2.9, H and H is 11.9 and 34.5, platelets are 207. CBC yesterday shows a white count of 3.7, H&H of 12.7 and 36.7 with platelets at 92 Chemistries are completely reassuring and essentially the same as yesterday Troponin is undetectable Creatinine kinase is appropriate Rapid strep PCR swab is negative Flu, RSV and COVID are negative from yesterday Urine yesterday showed no acute abnormalities is not repeated today Independently reviewed EKG: Imaging studies independently reviewed: Chest x-ray shows no acute findings, no cardiomegaly Consultations: Discussed developing pancytopenia with Dr. Rosales, oncology. Agreed that this is likely a post viral etiology and also recommended repeating a CBC on Tuesday. If numbers continue to drop would need urgent hematology oncology consultation Treatments: L of fluids were given Discussion: 29-year-old woman presents for the 2nd time in 24 hours with complaints of severe fatigue. Yesterday had a rash that has now resolved. Today's complaining of scratchy tongue, prickly feeling to her legs as if blood isn't returning as it should. She describes continued overwhelming fatigue. She had brief fever almost a week ago. Most likely etiology continues to be a viral syndrome. Workup today rules out acute kidney injury, post viral cardiomyopathy, congestive heart failure, significant liver abnormalities, no pulmonary infiltrates, mediastinal widening or cardiomegaly appreciated on chest x-ray. Of note is her CBC. Mild leukocytopenia and low platelets yesterday with normal H&H. Today she has low white, red and platelet counts. Currently still pending are a Monospot, also ordered EBV serology. Given the profound weakness in the mild bone suppression Radha bar virus is obviously considered. Patient was given a L of fluids today is feeling somewhat better. She has not orthostatic there was no need for hospitalization at this time. Ask the patient to [place] portal so that she can access the Monospot and EBV serology. She has given a copy of today's note with all of the blood work and I would like her to have a CBC done on the to make sure that her pancytopenia is not progressing to life-threatening levels. If it is significantly lower than urgent consultation to Hematology we will be indicated. Discharge Plan Departure Patient Disposition: Home Clinical Impression: Other pancytopenia Fatigue Qualifiers: Fatigue type: unspecified Qualified Code(s): R53.83 - Other fatigue Activity Restrictions/Additional Instructions: Thank you for coming back today. You are constellation of symptoms still is most likely a virus and post virus findings. The things that we have ruled out include acute kidney failure, acute liver abnormalities, acute electrolyte abnormalities, flu, RSV, COVID, , urinary tract infection, sepsis, bacterial pneumonia, postviral cardiomyopathy or developing congestive heart failure. One thing of concern is your CBC. In looking at your red blood cell count, white blood cell count and platelets, all bone components that are made by bone marrow, they are all slightly low. The most likely explanation for this is again a virus that is causing mild bone marrow suppression and we will resolve without any further intervention. I have added a Monospot and Radha-Sexton viral titers to your blood work, the viral titers are send out lab and should be available within 2-3 days. I would encourage you to download [facility] portal onto your phone so that you can access these. Radha bar is classic for causing dramatic fatigue and can sometimes cause transient bone marrow suppression as well You need to have a CBC drawn on Tuesday to check your white blood cell, red blood cell and platelet counts. I have given you copies of the blood work that we did today in [place] If there any issues, please return to the ER. Prescriptions: No Action No Known Home Medications oxycodone-acetaminophen [Percocet] 5-325 mg tablet 1 tab PO Q4-6H PRN (Reason: pain) Qty: 14 0RF Referrals: ProviderClarence [Primary Care Provider] - Stand Alone Forms: Patient Portal/API/Survey
--- NOTE | 2024-12-02 11:36 | DI.RAD.S_ITS ---
PROCEDURE: XR CHEST 1V INDICATIONS: fever TECHNIQUE: One view of the chest was acquired. COMPARISON: None. FINDINGS: Surgical changes and devices: None. Lungs and pleura: Lungs are clear. No pleural effusions or pneumothorax. Mediastinum: Mediastinal contours appear normal. Heart size is normal. Bones and chest wall: No suspicious bony lesions. Overlying soft tissues appear unremarkable. IMPRESSION: No acute cardiopulmonary pathology. Dictated by: Mario Collier M.D. on 12/02/2024 at 11:56 Approved by: Mario Collier M.D. on 12/02/2024 at 11:56
[2024-12-02] MEDS: SODIUM CHLORIDE 0.9% 1,000 ML 1000 ML IV (12:14)
[2024-12-02 12:31] LABS: Add Manual Diff / Slide Review NO; Basophils Absolute Auto 0 /uL (0-100); Basophils Percent Auto 1.1 % (0-2); Eosinophils Absolute Auto 200 /uL (0-450); Eosinophils Percent Auto 7.9 % (2-4); Hematocrit 34.5 % (36-46); Hemoglobin 11.9 g/dL (12.0-16.0); Lymphocytes Absolute Auto 1000 /uL (1100-4500); Lymphocytes Percent Auto 33.3 % (25-40); Mean Corpuscular HGB Conc 34.5 % (30-36); Mean Corpuscular Hemoglobin 29.8 PG (26-34); Mean Corpuscular Volume 86.3 fL (80-100); Monocytes Absolute Auto 300 /uL (0-900); Monocytes Percent Auto 9.4 % (3-14); Neutrophils Absolute Auto 1400 /uL (1500-7000); Neutrophils Percent Auto 48.3 % (50-75); Platelet Count 107 X10^3/uL (150-400); Red Cell Distribution Width 12.2 % (11.6-14.8); White Blood Cell Count 2.9 X10^3/uL (4.5-11.0)
[2024-12-02 12:38] LABS: Strep Grp A by PCR Rapid Negative (Negative)
[2024-12-02 12:41] LABS: Alanine Aminotransferase 25 IU/L (<35); Albumin 3.9 g/dL (3.5-5.0); Albumin Globulin Ratio 1.3 (1.0-2.8); Alkaline Phosphatase 40 U/L (38-126); Aspartate Aminotransferase 34 IU/L (14-36); BUN Creatinine Ratio 12.7 (6-22); Bilirubin Total 0.6 mg/dL (0.2-1.3); Blood Urea Nitrogen 9 mg/dL (7-17); Calcium 8.8 mg/dL (8.4-10.2); Carbon Dioxide 28 mmol/L (22-32); Chloride 103 mmol/L (98-107); Creatine Kinase 34 U/L (30-135); Estimated Glomerular Filt Rate > 60 mL/min (>60); Globulin 2.9 g/dL (1.7-4.1); Glucose 93 mg/dL (70-100); HEMOLYSIS < 15 (0-50); Potassium 3.8 mmol/L (3.4-5.1); Sodium 137 mmol/L (137-145); Total Protein 6.8 g/dL (6.3-8.2)
[2024-12-02 12:53] LABS: Troponin I < 0.012 ng/mL (0.01-0.034)
[2024-12-02 13:36] LABS: Monotest Negative (Negative)
[2024-12-03 15:17] LABS: EBV Virus IgG Ab 20.6 U/mL (0.0-17.9); EBV Virus IgM Ab > 160.0 U/mL (0.0-35.9)
== END 2024-12-02 13:50 | disposition home or self-care (01) ==
PROVIDERS: Emergency Provider Emergency Medicine
DX: R53.83 Other fatigue (principal); D61.818 Other pancytopenia; R20.2 Paresthesia of skin
CPT/HCPCS: 36415; 71045; 80053; 82550; 84484; 85025; 86318; 86665; 87070; 87651; 96360; 99284

== ENCOUNTER 2024-12-06 14:13 | Emergency (ER) | payer OTHER, SELFPAY ==
[2024-12-06 14:20] VITALS: BP 134/83; PULSE 117; RESP 18; TEMP 36.9; O2SAT 100; BMI 20.5
--- NOTE | 2024-12-06 14:26 | DI.CT.S_ITS ---
PROCEDURE: CT ANGIO CHEST PE PROTOCOL INDICATIONS: dyspnea, tachypnea TECHNIQUE: After the administration of intravenous contrast, 2 mm thick sections acquired from the pulmonary apices to the posterior costophrenic angles. 3-dimensional maximum intensity projection (MIP) coronal and sagittal reformats were then acquired through the thorax. For radiation dose reduction, the following was used: automated exposure control, adjustment of mA and/or kV according to patient size. COMPARISON: None. FINDINGS: Image quality: Diagnostic. Pulmonary arteries: Pulmonary arteries are normal in size, and demonstrate no intraluminal filling defects to suggest central pulmonary embolism. Lower Neck: No enlarged lymph nodes. Thyroid: No thyroid nodules which require sonographic follow up, per consensus guidelines. Axillae: No enlarged lymph nodes. Chest Wall: Unremarkable. Bones: Unremarkable. Lungs and Pleura: No pneumothorax or pleural effusions. No consolidation or suspicious nodules. Heart: Heart size is normal. No pericardial effusion. Thoracic Vessels: No aortic aneurysm. Mediastinum and Carri: No enlarged lymph nodes. Esophagus: No wall thickening. No hiatal hernia. Upper Abdomen: Visualized upper abdomen solid organs and bowel loops appear normal. IMPRESSION: 1. No pulmonary embolus. No thoracic aortic aneurysm or gross dissection. 2. No acute cardiopulmonary pathology. Dictated by: Mario Collier M.D. on 12/06/2024 at 15:22 Approved by: Mario Collier M.D. on 12/06/2024 at 15:23
[2024-12-06 14:58] LABS: Add Manual Diff / Slide Review NO; Basophils Absolute Auto 100 /uL (0-100); Eosinophils Absolute Auto 200 /uL (0-450); Eosinophils Percent Auto 3.2 % (2-4); Hemoglobin 11.5 g/dL (12.0-16.0); Lymphocytes Absolute Auto 1300 /uL (1100-4500); Lymphocytes Percent Auto 22.7 % (25-40); Mean Corpuscular Hemoglobin 29.8 PG (26-34); Mean Corpuscular Volume 85.2 fL (80-100); Monocytes Absolute Auto 400 /uL (0-900); Monocytes Percent Auto 6.8 % (3-14); Neutrophils Absolute Auto 3700 /uL (1500-7000); Neutrophils Percent Auto 66.3 % (50-75); Platelet Count 280 X10^3/uL (150-400); Red Blood Cell Count 3.87 X10^6/uL (4.0-5.2); White Blood Cell Count 5.6 X10^3/uL (4.5-11.0)
[2024-12-06 15:09] LABS: Alanine Aminotransferase 78 IU/L (<35); Albumin 4.5 g/dL (3.5-5.0); Albumin Globulin Ratio 1.5 (1.0-2.8); Alkaline Phosphatase 46 U/L (38-126); Aspartate Aminotransferase 62 IU/L (14-36); BUN Creatinine Ratio 11.8 (6-22); Bilirubin Total 0.6 mg/dL (0.2-1.3); Blood Urea Nitrogen 9 mg/dL (7-17); Calcium 9.6 mg/dL (8.4-10.2); Carbon Dioxide 27 mmol/L (22-32); Chloride 101 mmol/L (98-107); Estimated Glomerular Filt Rate > 60 mL/min (>60); Globulin 3.1 g/dL (1.7-4.1); Glucose 105 mg/dL (70-100); HEMOLYSIS < 15 (0-50); Lipase 45 U/L (23-300); Magnesium 1.9 mg/dL (1.6-2.3); Potassium 3.8 mmol/L (3.4-5.1); Sodium 138 mmol/L (137-145); Total Protein 7.6 g/dL (6.3-8.2)
[2024-12-06 15:12] LABS: Bacteria Urine Few (2-10); Ictotest Urine Negative (Negative); Mucus Urine 1+ (Negative); RBC Urine 0-1/HPF (0-5/HPF); Squamous Epithelial Cell Urine 0-1 /HPF (0-5/HPF); Urine Volume 10mL (spun); WBC Urine 1-5/HPF (0-5/HPF)
[2024-12-06 15:20] LABS: NT-proBNP (BNP-Adult 18+) 21 pg/mL (<125); Troponin I < 0.012 ng/mL (0.01-0.034)
--- NOTE | 2024-12-06 15:35 | ED.RECABL ---
HPI - Recheck/Abnormal Lab/Rx General Chief Complaint: Recheck/Abnormal Lab/Rx Stated Complaint: Not feeling better after last ER visit, weak Time Seen by Provider: 12/06/24 14:20 History of Present Illness HPI narrative: 29-year-old woman now back for 3rd ER visit with continued complaints of dramatic fatigue now including exertional dyspnea and tachypnea. Initially she had a rash that had resolved within 24 hours 2nd day showed low white count, red cells and platelets with concerns for pancytopenia for recommendations to recheck blood work. Titers for Radha-Sexton virus are done at that time are positive. [place] and white blood cell red blood cell and platelet counts are all trending. Has not heard back from her primary care physician and with the increasing dyspnea she returns again today. No vomiting, no fevers, no lower extremity edema Related Data Home Medications Medication Instructions Recorded Confirmed No Known Home Medications 05/22/20 07/01/20 Previous Rx's Medication Instructions Recorded oxycodone-acetaminophen 5 mg-325 1 tab PO Q4-6H PRN pain #14 tabs 07/03/20 mg tablet (Percocet) Allergies Allergy/AdvReac Type Severity Reaction Status Date / Time ku pepper Allergy Severe Difficulty Uncoded 07/03/20 08:42 Breathing eggs Allergy Severe Difficulty Uncoded 07/03/20 08:42 Breathing red onion Allergy Severe Difficulty Uncoded 07/03/20 08:42 Breathing Review of Systems Review of Systems Narrative: Pertinent positive and negative findings as per HPI Patient History Medical History (spontaneous vaginal delivery) Surgical History Anesthesia [place] teeth extracted (~2009) H/O rhinoplasty (~2007) H/O adenoidectomy (~1996) Family History Father Hypertension Hyperlipidemia Mother Fibromyalgia EDS (Ava-Danlos syndrome) Grandfather Stroke Grandfather History of heart disease Social History household members: spouse and children Smoking Status: Never smoker Smoking Status: Never smoker alcohol intake frequency: holidays/special occasions only Exam Initial Vital Signs Initial Vital Signs: Vital Signs Temperature 98.4 F 12/06/24 14:20 Pulse Rate 117 H 12/06/24 14:20 Respiratory Rate 18 12/06/24 14:20 Blood Pressure 134/83 12/06/24 14:20 Pulse Oximetry 100 12/06/24 14:20 Oxygen Delivery Method Room Air 12/06/24 14:20 General: Healthy appearing, fatigued but in no acute distress. Able to give a complete and coherent history. Well-nourished well-developed HEENT: Moist mucous membranes, normal sclera with reactive pupils, Respiratory: Lungs are clear to auscultation, mild tachypnea no wheezing no rales no rhonchi. Full and symmetrical air movement Cardiac: Tachycardic but otherwise Regular rate and rhythm Abdomen: Soft, nontender, no rebound or guarding, no flank pain Skin: Warm and dry, no rashes Neurologic: Grossly neurologically intact with no obvious asymmetries or abnormalities Extremities: No trauma, well perfused Psych: Cooperative, appropriate insight and affect Course Orders Ordered: ED Orders 12/06/24 14:26 CT angio chest PE protocol Stat 12/06/24 14:30 Complete Blood Count AUTO DIFF Stat Comprehensive Metabolic Panel Stat Lipase Stat Magnesium Stat NT-proBNP (BNP-Adult 18+) Stat Troponin I Stat 12/06/24 14:33 Ictotest Urine Stat Urine Culture Stat Urine Microscopic Stat Vital Signs Vital signs: Vital Signs - 8 hr 12/06/24 14:20 Temperature 98.4 F Pulse Rate 117 H Respiratory Rate 18 Blood Pressure 134/83 Pulse Oximetry 100 Oxygen Delivery Method Room Air MDM - Recheck/Abnormal Lab/Rx Lab Data 12/06/24 14:30 12/06/24 14:30 Labs: Lab Results 12/06/24 12/06/24 Range/Units 14:30 14:33 WBC 5.6 (4.5-11.0) X10^3/uL RBC 3.87 L (4.0-5.2) X10^6/uL Hgb 11.5 L (12.0-16.0) g/dL Hct 33.0 L (36-46) % MCV 85.2 (80-100) fL MCH 29.8 (26-34) PG MCHC 35.0 (30-36) % RDW 12.0 (11.6-14.8) % Plt Count 280 (150-400) X10^3/uL Neut % (Auto) 66.3 (50-75) % Lymph % (Auto) 22.7 L (25-40) % [place] % (Auto) 6.8 (3-14) % Eos % (Auto) 3.2 (2-4) % Baso % (Auto) 1.0 (0-2) % Neut # (Auto) 3700 (7318-6539) /uL Lymph # (Auto) 1300 (8274-4530) /uL [place] # (Auto) 400 (0-900) /uL Eos # (Auto) 200 (0-450) /uL Baso # (Auto) 100 (0-100) /uL Sodium 138 (137-145) mmol/L Potassium 3.8 (3.4-5.1) mmol/L Chloride 101 (98-107) mmol/L Carbon Dioxide 27 (22-32) mmol/L BUN 9 (7-17) mg/dL Creatinine 0.76 (0.52-1.04) mg/dL Estimated GFR > 60 (>60) mL/min BUN/Creatinine Ratio 11.8 (6-22) Glucose 105 H (70-100) mg/dL Calcium 9.6 (8.4-10.2) mg/dL Magnesium 1.9 (1.6-2.3) mg/dL Total Bilirubin 0.6 (0.2-1.3) mg/dL AST 62 H (14-36) IU/L ALT 78 H (<35) IU/L Alkaline Phosphatase 46 (38-126) U/L Troponin I < 0.012 (0.01-0.034) ng/mL NT-Pro-B Natriuret Pep 21 (<125) pg/mL Total Protein 7.6 (6.3-8.2) g/dL Albumin 4.5 (3.5-5.0) g/dL Globulin 3.1 (1.7-4.1) g/dL Albumin/Globulin Ratio 1.5 (1.0-2.8) Lipase 45 (23-300) U/L Ur Bilirubin Confirm Negative (Negative) Urine RBC 0-1/hpf (0-5/HPF) Urine WBC 1-5/hpf (0-5/HPF) Ur Squamous Epith Cells 0-1 /hpf (0-5/HPF) Urine Bacteria Few (2-10) H (None) Urine Mucus 1+ H (Negative) Vol Urine Centrifuged 10ml (spun) Point of Care Testing Test Results Negative Urine Dip Bedside Urine Glucose Negative Bedside Urine Bilirubin + 1 Bedside Urine Ketone - Negative Urine Specific [place] 1.020 Bedside Urine Occult Blood - Negative Bedside Urine pH 6 Bedside Urine Protein - Negative Bedside Urine Urobilinogen - Negative Bedside Urine Nitrite - Negative Bedside Urine Leukocytes +/- [address] scan - chest: Radiologist's Impression: PROCEDURE: CT ANGIO CHEST PE PROTOCOL INDICATIONS: dyspnea, tachypnea TECHNIQUE: After the administration of intravenous contrast, 2 mm thick sections acquired from the pulmonary apices to the posterior costophrenic angles. 3-dimensional maximum intensity projection (MIP) coronal and sagittal reformats were then acquired through the thorax. For radiation dose reduction, the following was used: automated exposure control, adjustment of mA and/or kV according to patient size. COMPARISON: None. FINDINGS: Image quality: Diagnostic. Pulmonary arteries: Pulmonary arteries are normal in size, and demonstrate no intraluminal filling defects to suggest central pulmonary embolism. Lower Neck: No enlarged lymph nodes. Thyroid: No thyroid nodules which require sonographic follow up, per consensus guidelines. Axillae: No enlarged lymph nodes. Chest Wall: Unremarkable. Bones: Unremarkable. Lungs and Pleura: No pneumothorax or pleural effusions. No consolidation or suspicious nodules. Heart: Heart size is normal. No pericardial effusion. Thoracic Vessels: No aortic aneurysm. Mediastinum and Carri: No enlarged lymph nodes. Esophagus: No wall thickening. No hiatal hernia. Upper Abdomen: Visualized upper abdomen solid organs and bowel loops appear normal. IMPRESSION: 1. No pulmonary embolus. No thoracic aortic aneurysm or gross dissection. 2. No acute cardiopulmonary pathology. Dictated by: Mario Collier M.D. on 12/06/2024 at 15:22 MDM Narrative Medical decision making narrative: CC: Persistent fatigue Complicating co-morbidities: 3rd visit now for worsening fatigue today with increasing dyspnea and tachypnea as well as tachycardia Data collected from: patient Medical records reviewed: Reviewed 1st 2 ER visits with same complaint, labs from [facility] drawn on December 04 are reviewed. Differential considered: Radha bar virus infection, pulmonary embolism Exam documented above, pertinent findings include: Exam continues to be relatively benign. No abdominal tenderness, no rhonchi or rales. Tachypneic but no other signs of respiratory distress Lab Test results independently reviewed as above. Pertinent findings: EBV capsid antigen IgM significantly elevated at >160 suggesting acute infection. EBV antigen IgG is slightly elevated at 20.6 Imaging studies independently reviewed: CT angiogram of the chest does not show pulmonary embolism or other significant thoracic abnormality Discussion: Otherwise healthy 29-year-old woman returns today with continued complaints of fatigue. Concern for pancytopenia with her last visit has resolved, all blood count lines are increasing. Slight change to AST and ALT. EBV titers are positive and the course of her symptoms are consistent with the acute Radha-Sexton virus as is the severe fatigue. At this point there is no evidence for PE or cardiomyopathy. Reassurance is given encouraged her to follow up with the primary care physician and she was discharged home Discharge Plan Departure Patient Disposition: Home Clinical Impression: Radha Sexton infection Activity Restrictions/Additional Instructions: Thank you for coming back today, this must be incredibly frustrating. I did not find any evidence of blood clots in your lungs, no lung infections, no enlarged heart findings or other concerns. Your blood work today is reassuring with your white blood cells, red blood cells and platelet counts coming back up. There is some minor inflammation in your liver. When I talked with the customer service clerk the other day with the low cells altogether, we both thought that this is most likely a virus. Specifically, with your severe fatigue, I checked for Radha-Sexton virus and it does look like you have that and are currently getting over that. You did not test positive for mononucleosis. Radha bar virus can be associated with chronic fatigue syndrome. It can also cause the rash, blood cell changes and minor liver changes that we have seen. At this time, there is nothing that is life-threatening, there is no reason to stay in the hospital, I would encourage you to do some online research regarding Radha bar virus and please do follow up with your primary care doctor. Again, I have given you copies of blood work and CT scans from today to share with your doctor. I wish you the very best. Prescriptions: No Action No Known Home Medications oxycodone-acetaminophen [Percocet] 5-325 mg tablet 1 tab PO Q4-6H PRN (Reason: pain) Qty: 14 0RF Referrals: Provider,[place] AUGUST [Primary Care Provider] - Stand Alone Forms: Patient Portal/API/Survey
[2024-12-06 16:05] VITALS: BP 98/65; PULSE 97; RESP 20; TEMP 37; O2SAT 100
== END 2024-12-06 16:07 | disposition home or self-care (01) ==
PROVIDERS: Emergency Provider Emergency Medicine
DX: B27.00 Gammaherpesviral mononucleosis without complication (principal); R06.00 Dyspnea, unspecified; R00.0 Tachycardia, unspecified
CPT/HCPCS: 71275; 80053; 81003; 81015; 81025; 83690; 83735; 83880; 84484; 85025; 87086; 99282; 99284; Q9967